=== PATIENT | male | born 1955 | race Caucasian/White ===

== ENCOUNTER 2020-08-25 16:00 | Inpatient (IN) | payer MEDICAID ==
[~2020-08-25] VITALS: Ht 195.6 cm; Wt 98.4 kg
--- NOTE | 2020-08-25 16:10 | NUR ---
65 years old male presents to er with gen weakness denies pain, alert, oriented, c/o chronic back pain, unable to walk.
--- NOTE | 2020-08-25 16:46 | NUR ---
[facility] community mental health social worker notified for consult.
--- NOTE | 2020-08-25 16:51 | NUR ---
talked to Maddie and replied she is waiting for medical clearance.
[2020-08-25 18:07] LABS: HEMATOCRIT 33.7 % (36.7-47.1); MEAN CORPUSCULAR HEMOGLOBIN 31.7 uug (23.8-33.4); MEAN CORPUSCULAR VOLUME 94.2 fL (73.0-96.2); PLATELET COUNT (AUTO) 467 K/uL (152-348)
--- NOTE | 2020-08-25 18:08 | NUR ---
lab drawn result pending, no acute changes.alert, oriented.
[2020-08-25 18:15] LABS: ETHANOL < 3 MG/DL (0-0)
[2020-08-25 18:30] LABS: CARBON DIOXIDE 24 mmol/L (21-32); CHLORIDE 103 mmol/L (98-107); CREATININE 1.6 mg/dL (0.6-1.3); GLUCOSE 110 mg/dL (74-106); POTASSIUM 4.2 mmol/L (3.5-5.1); UREA NITROGEN, BLOOD 25 mg/dL (7-18)
[2020-08-25 18:33] LABS: THYROID STIMULATING HORMONE 1.446 mIU/mL (0.358-3.740)
[2020-08-25 18:34] LABS: ALANINE AMINOTRANSFERASE 154 U/L (16-63); ALKALINE PHOSPHATASE 83 U/L (50-136); ASPARTATE AMINOTRANSFERASE 75 U/L (15-37); BILIRUBIN,DIRECT 0.1 mg/dL (0.0-0.2); BILIRUBIN,TOTAL 0.3 mg/dL (0.2-1.0); TOTAL PROTEIN, SERUM 7.3 g/dL (6.4-8.2)
[2020-08-25 18:35] LABS: ACETAMINOPHEN < 2.0 ug/mL (10-30)
[2020-08-25 19:21] LABS: *BILIRUBIN,URIN NEGATIVE (NEGATIVE); *BLOOD, URINE NEGATIVE (NEGATIVE); *CLARITY,URINE CLEAR (CLEAR); *COLOR,URINE YELLOW (YELLOW); *KETONES,URINE NEGATIVE (NEGATIVE); *UROBILINOGEN,URINE 0.2 E.U./dl (NORMAL); LEUKOCYTE ESTERASE ,URINE NEGATIVE (NEGATIVE); NITRITE, URINE NEGATIVE (NEGATIVE); UGLUCOSE NEGATIVE (NEGATIVE)
[2020-08-25 19:27] LABS: *AMPHETAMINE, URINE NEGATIVE (NEGATIVE); *CANNABINOID, URINE NEGATIVE (NEGATIVE); *COCCAINE, URINE NEGATIVE (NEGATIVE); *OPIATE, URINE NEGATIVE (NEGATIVE); *PHENCYCLIDINE SCREEN,URINE NEGATIVE (NEGATIVE)
--- NOTE | 2020-08-25 19:39 | NUR ---
texted dr. avila for mri approval.
--- NOTE | 2020-08-25 19:53 | NUR ---
CALLED LAB AND THEY HAVE THE SAMPLE FOR COVID AND MRSA.
--- NOTE | 2020-08-25 20:09 | NUR ---
MRI D/C BY : DOCTOR ALLEN.
--- NOTE | 2020-08-25 20:41 | NUR ---
CHRISTINA BROOKE INVENTORY CONTROL ANALYST AT BEDSIDE ,EXAMINED PATIENT AND EXPLAINED PLAN OF CARE FOR ADMISSION TO THE FLOOR .
--- NOTE | 2020-08-25 21:31 | NUR ---
INCONTINENT OF STOOL ,HAD LARGE AMT OF SOFT BROWNISH STOOL ,CHANGED SOILED GOWN AND DIAPER , PATIENT ABLE TO HELP IN TURNING FROM SIDE TO SIDE .
--- NOTE | 2020-08-25 21:33 | NUR ---
PATIENT ASKED FOR SOMETHING TO EAT GIVEN DINNER TRAY ABLE TO FEED SELF.
--- NOTE | 2020-08-25 22:07 | NUR ---
REPORT USING SBAR GIVEN TO KIP LEIVA AND PATIENT GOING TO ROOM 301A.
[2020-08-25] MEDS ORDERED: MAGNESIUM HYDROXIDE 30 ML LIQUID UDC PO PRN (22:45)
[2020-08-25] MEDS ORDERED: ZOLPIDEM 5 MG TABLET PO PRN (22:45)
[2020-08-25] MEDS ORDERED: Z GUARD REMEDY PASTE 57 GM TUBE TOP PRN (22:45)
[2020-08-25] MEDS ORDERED: ONDANSETRON 4 MG/2 ML VIAL IV PRN (22:45)
[2020-08-25 23:00] VITALS: BP 117/70
--- NOTE | 2020-08-25 23:39 | NUR ---
Pt arrived at 2245 accompanied by Twyla SHIN from ER via [place]. AAO x3-4. No acute distress noted. Denies pain at this time. Noted pt to have bilateral lower extremity weakness, unable to walk. Pertinent assessment done. During assessment, only history given is chronic back pain. Oriented pt to room and equipment. Safety measures maintained. Bed alarm on. Encouraged to use call light. Personal items within reach. Will continue to monitor.
[2020-08-26 04:00] VITALS: BP 128/69
[2020-08-26] MEDS: PANTOPRAZOLE SODIUM 40 MG TABLET.DR PO SCH (06:06)
--- NOTE | 2020-08-26 06:32 | NUR ---
Pt has been refusing skin assessment ever since last night. Risks and benefits explained, offered multiple times. Pt still refused.
[2020-08-26 07:46] LABS: HEMATOCRIT 31.1 % (36.7-47.1); MEAN CORPUSCULAR HEMOGLOBIN 32.6 uug (23.8-33.4); MEAN CORPUSCULAR VOLUME 94.5 fL (73.0-96.2); PLATELET COUNT (AUTO) 445 K/uL (152-348)
[2020-08-26 08:00] LABS: CREATININE 1.5 mg/dL (0.6-1.3); MAGNESIUM 2.2 mg/dL (1.8-2.4); PHOSPHOROUS 4.5 mg/dL (2.5-4.9); POTASSIUM 4.2 mmol/L (3.5-5.1)
[2020-08-26 08:03] VITALS: BP 123/69
[2020-08-26] MEDS: HEPARIN SODIUM,PORCINE 5,000 UNITS/ML VIAL SQ SCH ×2 (08:22→21:36)
[2020-08-26 11:16] VITALS: BP 121/73
[2020-08-26 15:12] VITALS: BP 109/74
[2020-08-26 16:36] LABS: IRON, SERUM 92 ug/dL (50-175)
[2020-08-26 17:03] LABS: FERRITIN 845 ng/mL (26-388); LACTATE DEHYDROGENASE 168 U/L (85-227)
[2020-08-26 17:12] LABS: THYROID STIMULATING HORMONE 1.068 mIU/mL (0.358-3.740)
[2020-08-26 20:00] VITALS: BP 103/72
[2020-08-27 04:00] VITALS: BP 117/70
[2020-08-27] MEDS: PANTOPRAZOLE SODIUM 40 MG TABLET.DR PO SCH (06:16)
--- NOTE | 2020-08-27 07:00 | NUR ---
Patient slept well through out the night No c/o pain during the shift.Compliant with medication. Midline intact on left upper arm.Patient uses urinal .No Bm yet .Will collect blood stool .VSS .All needs anticipated and met accordingly.Will endorse to oncoming shift.
[2020-08-27 07:06] LABS: AFP, TUMOR MARKER 2.3 ng/mL (0.0-8.3)
[2020-08-27 07:40] LABS: HEMATOCRIT 31.4 % (36.7-47.1); MEAN CORPUSCULAR HEMOGLOBIN 32.9 uug (23.8-33.4); MEAN CORPUSCULAR VOLUME 94.6 fL (73.0-96.2); PLATELET COUNT (AUTO) 404 K/uL (152-348)
[2020-08-27 07:50] LABS: BILIRUBIN,TOTAL 0.3 mg/dL (0.2-1.0); CREATININE 1.4 mg/dL (0.6-1.3); POTASSIUM 4.4 mmol/L (3.5-5.1); TOTAL PROTEIN, SERUM 6.6 g/dL (6.4-8.2)
[2020-08-27] MEDS: HEPARIN SODIUM,PORCINE 5,000 UNITS/ML VIAL SQ SCH ×2 (08:15→20:14)
--- NOTE | 2020-08-27 10:00 | NUR ---
Faxed over medical record request from [facility]. Awaiting medical records to be faxed.
[2020-08-27 12:00] VITALS: BP 111/53
--- NOTE | 2020-08-27 15:37 | NUR ---
Pt stated that he is claustrophobic and that he received anti anxiety prior to getting his mri to be tolerated. Notified DR Ramsey. New order received and carried out.
[2020-08-27 16:06] VITALS: BP 109/55
--- NOTE | 2020-08-27 17:00 | NUR ---
no response from medical records of [facility] will f/u with in am.
[2020-08-27] MEDS ORDERED: LORAZEPAM 2 MG/1 ML VIAL IV PRN (19:00)
--- NOTE | 2020-08-27 19:00 | NUR ---
RECEIVED PT AWAKE,ALERT AND ORIENTEDX4. PT IN NO ACUTE DISTRESS. IV INTACT. SAFETY AND COMFORT PROVIDED. WILL CONTINUE TO MONITOR.
[2020-08-27] MEDS: ACETAMINOPHEN 325 MG TABLET PO PRN (19:55)
--- NOTE | 2020-08-27 19:55 | NUR ---
TYLENOL 650MG PRN GIVEN TO PT FOR PAIN. PT TOLERATED IT WELL. WILL CONTINUE TO MONITOR.
[2020-08-27 20:00] VITALS: BP 115/68
--- NOTE | 2020-08-27 23:30 | NUR ---
EXPLAINED TO THE PT THAT HE WILL HAVE THE MRI ON [facility]. HE REFUSED. SOME OF THE CONSENT OF MRI WAS SIGNED BY THE PT. CHARGE NURSE AWARE.
[2020-08-28 05:00] VITALS: BP 118/68
[2020-08-28] MEDS: PANTOPRAZOLE SODIUM 40 MG TABLET.DR PO SCH (06:07)
--- NOTE | 2020-08-28 06:18 | NUR ---
PT SLEPT INTERMITTENTLY. PT REFUSED FOR THE MRI BECAUSE HE SAID ITS A HASSLE. PRESCRIBED MEDICATION GIVEN AND PT TOLERATED IT WELL. SAFETY AND COMFORT PROVIDED. ALL NEEDS ARE MET. WILL ENDORSE TO INCOMING NURSE FOR CONTINUITY OF CARE.
[2020-08-28 06:29] LABS: HEMATOCRIT 32.1 % (36.7-47.1); MEAN CORPUSCULAR HEMOGLOBIN 32.4 uug (23.8-33.4); MEAN CORPUSCULAR VOLUME 95.4 fL (73.0-96.2); PLATELET COUNT (AUTO) 391 K/uL (152-348)
[2020-08-28 07:00] LABS: CREATININE 1.5 mg/dL (0.6-1.3); MAGNESIUM 2.2 mg/dL (1.8-2.4); POTASSIUM 4.6 mmol/L (3.5-5.1)
[2020-08-28] MEDS: HEPARIN SODIUM,PORCINE 5,000 UNITS/ML VIAL SQ SCH ×2 (07:59→20:18)
--- NOTE | 2020-08-28 08:00 | NUR ---
Notified Dr ramsey pt is refusing to have his MRI DONE. Dr Ramsey spoke with pt and pt was agreeable with the MRI. PT is in no acute distress. Consent signed.
[2020-08-28 15:52] VITALS: BP 110/70
--- NOTE | 2020-08-28 16:28 | NUR ---
Pin Feather Machine Operator consultation was requested for placement. This PRINTING ESTIMATOR spoke with MAVERICK Newman, who has already arranged for patient to be placed at [facility] and rehab, after this hospitalization. No further SS interventions needed at this time.
--- NOTE | 2020-08-28 19:15 | NUR ---
RECEIVED PT. PT JUST COME BACK FROM MRI . [facility] BROU[facility] BACK TO HIS ROOM.PT IN NO ACUTE DISTRESS. IV INTACT. SAFETY AND COMFORT PROVIDED. WILL CONTINUE TO MONITOR.
[2020-08-28 19:30] VITALS: BP_SYST 120; BP_SYST 128; BP_DIAS 65; BP_DIAS 76
[2020-08-28 20:00] VITALS: BP_SYST 120; BP_SYST 132; BP_SYST 139; BP_DIAS 65; BP_DIAS 67; BP_DIAS 79
--- NOTE | 2020-08-28 20:10 | NUR ---
AT 1945H PT ALERT AND ORIENTED DECIDED TO STAND UP ON HIS OWN AND A SITTER FOR ANOTHER PT WAS INSTRUCTING HIM TO SIT DOWN SO HE WON'T FALL , SHE THEN ASSISTED PT TO SIT ON THE FLOOR BECAUSE PT IS UNSTEADY ON HIS FEET. NO INJURY NOTED. NO OBSERVABLE SIGN AND SYMPTOMS RESULTING FROM ABOVE. RANGE OF MOTION OF ALL EXTREMITIES ASSESSED, VITAL SIGNS TAKEN AND RECORDED. NEUROCHECK DONE. ASSISTED BACK TO BED VIA TWO MEN ASSIST. APPROPRIATE PERSONNEL NOTIFIED. CONTINUE VISUAL CHECK AND MONITORING, FREQUENT CHECK FOR NEEDS REGARDING HYGIENE , BOWEL AND BLADDER AND OTHER ACTIVITIES OF DAILY LIVING
[2020-08-28] MEDS: ACETAMINOPHEN 325 MG TABLET PO PRN (20:17)
[2020-08-28 20:45] LABS: *OCCULT BLOOD STOOL NEGATIVE (NEGATIVE)
--- NOTE | 2020-08-28 22:08 | NUR ---
AT 1945H PT HAD ASSISTED FALL WITH THE [employer] SALES REPRESENTATIVE. PT IN NO ACUTE DISTRESS. VITAL SIGNS WERE TAKEN AFTER. VITAL SIGNS STABLE. NEUROCHECK DONE. AT 2017 H PT WAS GIVEN TYLENOL 650MG PRN PER PT REQUEST. SAFETY AND COMFORT PROVIDED. WILL CONTINUE TO MONITOR.
--- NOTE | 2020-08-28 23:53 | NUR ---
NOTIFY DR. CRYSTAL TIERNEY REGARDING THE INCIDENT. NO NEW ORDERS NOTED.
[2020-08-29 04:03] VITALS: BP 115/64
[2020-08-29] MEDS: PANTOPRAZOLE SODIUM 40 MG TABLET.DR PO SCH (06:05)
--- NOTE | 2020-08-29 06:29 | NUR ---
PT SLEPT COMFORTABLY. PT IN NO ACUTE DISTRESS. IV INTACT. PRESCRIBED MEDICATION GIVEN AND PT TOLERATED IT WELL. VITAL SIGNS STABLE. SAFETY AND COMFORT PROVIDED. WILL ENDORSE TO INCOMING NURSE FOR CONTINUITY OF CARE.
[2020-08-29 06:47] LABS: HEMATOCRIT 31.8 % (36.7-47.1); MEAN CORPUSCULAR HEMOGLOBIN 31.6 uug (23.8-33.4); MEAN CORPUSCULAR VOLUME 94.7 fL (73.0-96.2); PLATELET COUNT (AUTO) 364 K/uL (152-348)
[2020-08-29 07:17] LABS: CREATININE 1.4 mg/dL (0.6-1.3); MAGNESIUM 2.1 mg/dL (1.8-2.4)
--- NOTE | 2020-08-29 08:00 | NUR ---
received awake alert and oriented, denies of pain, no distress noted, explained plan of care- verbalized understanding, emphasized not to get out of bed- understood, safety measures maintained, call light within reach
[2020-08-29] MEDS: HEPARIN SODIUM,PORCINE 5,000 UNITS/ML VIAL SQ SCH (08:44)
[2020-08-29] MEDS ORDERED: ENSURE ENLIVE (VAN) 240 ML LIQUID PO SCH (09:00)
--- NOTE | 2020-08-29 11:00 | NUR ---
bedside report given to Kristian RN for continuation of care
[2020-08-29 11:07] LABS: HEPATITIS B SURFACE AB Non Reactive (.); HEPATITIS B SURFACE AG Negative (Negative)
[2020-08-29] MEDS ORDERED: TAMS-3 PO (11:55)
[2020-08-29 11:56] VITALS: BP 108/62
--- NOTE | 2020-08-29 11:59 | NUR ---
care taken over now. Patient alert, oriented, and appropriate, bladder scanned him , 98cc seen. Plan- to discharge to SNF, needs to hear from Commercial Front Load Driver before the paperwork proceeds.
--- NOTE | 2020-08-29 12:50 | NUR ---
called the facility which given by MAVERICK, , report given to Omayra. Patient will be going to room #30C, pickle water pump operator time expected 3pm by [facility]. Agreeable with the arrangement.
--- NOTE | 2020-08-29 14:16 | NUR ---
prior to discharge to other facility, pic on sacral area taken, ABSOLUTELY NO OPEN AREA NOTED, but redness. PICC line , HL out before he is leaving the floor
[2020-08-29 16:04] VITALS: BP 108/64
[2020-08-29 18:56] LABS: *IMMUNOGLOBULIN G, SERUM 1057; ALBUMIN 3.1; IMMUNOGLOBULIN A, SERUM 669 HIGH; IMMUNOGLOBULIN M, SERUM 88
[2020-08-29 18:57] LABS: ALPHA-1-GLOBULIN 0.3; ALPHA-2-GLOBULIN 0.7; BETA GLOBULIN 1.2; GAMMA GLOBULIN 1.3; GLOBULIN, TOTAL 3.4; M-SPIKE Not Observed
[2020-08-29 18:58] LABS: A/G RATIO 0.9
== END 2020-08-29 15:40 | DRG 347 ==
LOC: ER 16:00 → TELE3 22:14 → MEDSURG3 23:23
PROVIDERS: ADMIT Nurse Practitioner Family; ATTEND Nurse Practitioner Acute Care
DX: M48.062 Spinal stenosis, lumbar region with neurogenic claudication (principal); N17.0 Acute kidney failure with tubular necrosis; E44.1 Mild protein-calorie malnutrition; N13.8 Other obstructive and reflux uropathy; E88.09 Other disorders of plasma-protein metabolism, not elsewhere classified; K65.4 Sclerosing mesenteritis; N40.1 Benign prostatic hyperplasia with lower urinary tract symptoms; R53.1 Weakness; R26.81 Unsteadiness on feet; D64.9 Anemia, unspecified; K57.90 Diverticulosis of intestine, part unspecified, without perforation or abscess without bleeding; D72.829 Elevated white blood cell count, unspecified; R32 Unspecified urinary incontinence; Z20.822 Contact with and (suspected) exposure to COVID-19; N32.0 Bladder-neck obstruction; D47.3 Essential (hemorrhagic) thrombocythemia; R74.01 Elevation of levels of liver transaminase levels; D63.8 Anemia in other chronic diseases classified elsewhere; R15.9 Full incontinence of feces; Z68.25 Body mass index [BMI] 25.0-25.9, adult; N32.3 Diverticulum of bladder
CPT/HCPCS: 36415; 70030-TC; 70450; 71045; 72158; 82105; 82378; 82747; 82784; 83550; 83605; 83615; 83735; 84100; 84153; 84155; 84165; 84443; 85014; 85025; 85730; 86334; 86706; 86803; 87040; 87086; 87340; 93005; 97161; A4663; G0378; G0480; J1644; J2060